=== PATIENT | male | born 1950 | race Caucasian/White ===

== ENCOUNTER 2021-01-21 18:13 | Emergency (ER) | payer OTHER, MEDICARE ==
[~2021-01-21] VITALS: Ht 180.3 cm; Wt 90.0 kg
[2021-01-21] MEDS ORDERED: TRAMADOL HYDROC50 MG PO (19:35)
[2021-01-21 19:55] VITALS: BP 156/90
== END 2021-01-21 20:14 | disposition home or self-care (01) | DRG 605 ==
LOC: ED 18:13
PROC: 0HQ1XZZ Repair Face Skin, External Approach (ICD-10-PCS; principal; 2021-01-21)
DX: S01.81XA Laceration without foreign body of other part of head, initial encounter (principal); V43.62XA Car passenger injured in collision with other type car in traffic accident, initial encounter